=== PATIENT | male | born 1955 | race Caucasian/White ===

== ENCOUNTER → 2017-12-11 | Emergency (ER) | payer OTHER ==
[~2017-12-11] VITALS: Ht 180.3 cm; Wt 90.7 kg
[~2017-12-11] MED LIST: CARDIZEM120 MG; SIMVASTATIN40 MG; SYNTHROID100 MCG; VALSARTAN80 MG
== END | disposition home or self-care (01) ==
LOC: ER 16:46
DX: N20.0 Calculus of kidney (principal); N20.1 Calculus of ureter; K80.20 Calculus of gallbladder without cholecystitis without obstruction

== ENCOUNTER 2022-09-09 08:42 | Day surgery (SDC) | payer OTHER ==
[~2022-09-09] VITALS: Ht 180.3 cm; Wt 90.7 kg
[~2022-09-09 08:42] MED LIST changes: +BENICAR40 MG PO; +CARDURA1 MG PO; +NORVASC5 MG PO; -SYNTHROID100 MCG; +SYNTHROID100 MCG PO; +ZYLOPRIM100 M1 PO
== END 2022-09-09 14:15 | disposition home or self-care (01) ==
LOC: CIR.AMB 08:42
PROVIDERS: ATTEND Orthopaedic Surgery
DX: M77.12 Lateral epicondylitis, left elbow (principal); I10 Essential (primary) hypertension; Z20.822 Contact with and (suspected) exposure to COVID-19; E03.9 Hypothyroidism, unspecified